=== PATIENT | female | born 1965 | race African-American/Black ===

== ENCOUNTER → 2017-10-01 | Outpatient (CLI) | payer OTHER ==
[~2017-10-01] MED LIST: MULT-65 PO; OXYC-360 PO; PRENTAB72 PO; TAMO10TA6 PO
[2017-10-01 15:32] LABS: HEMATOCRIT 37.4 % (35.0-46.0); MEAN CELL VOLUME 95.2 FL (80.0-100.0); MEAN CORPUSCULAR HGB CONC 33.6 % (32.0-36.0); PLATELET COUNT 275 TH/MM3 (150-450); RED BLOOD COUNT 3.93 MIL/MM3 (4.00-5.30); REVIEW FLAG FINAL; WHITE BLOOD COUNT 5.3 TH/MM3 (4.0-11.0)
[2017-10-01 15:39] LABS: BLOOD, URINE NEG (NEG); GLUCOSE,URINE NEG (NEG); KETONE, URINE NEG (NEG); MUCUS URINE FEW /lpf (OCC); NITRITE,URINE NEG (NEG); PH, URINE 6.5 (5.0-8.5); SQUAMOUS EPITHELIAL CELL URINE 8 /hpf (0-5); URINE COLOR YELLOW (YELLW/STRAW)
[2017-10-01 16:06] LABS: ANION GAP 8 MEQ/L (5-15); BICARBONATE 27.2 MEQ/L (21.0-32.0); BLOOD UREA NITROGEN 13 MG/DL (7-18); CHLORIDE 106 MEQ/L (98-107); GLOMERULAR FILTRATION RATE 86 ML/MIN (>89); GLUCOSE,FASTING 83 MG/DL (74-99); POTASSIUM 3.9 MEQ/L (3.5-5.1); SODIUM (NA) 141 MEQ/L (136-145)
--- NOTE | 2017-10-01 16:10 | RADRPT ---
EXAM DATE/TIME: 10/01/2017 15:33 [place] COMPARISON: No previous studies available for comparison. INDICATIONS : Evaluate for pneumonia, pneumothorax, or communicable disease. Pre op polyp removal and hysterectomy. MEDICAL HISTORY : None. SURGICAL HISTORY : None. ENCOUNTER: Initial ACUITY: 1 day PAIN SCORE: 0/10 LOCATION: Bilateral chest FINDINGS: PA and lateral views of the chest demonstrate the lungs to be symmetrically aerated without evidence of mass, infiltrate or effusion. The cardiomediastinal contours are unremarkable. Osseous structure s are intact. CONCLUSION: No acute disease. Gregg Huggins MD on October 01, 2017 at 16:08 Board Certified Radiologist. This report was verified electronically.
[2017-10-01 16:13] LABS: BHCG SCREEN QUALITATIVE LESS THAN 1 MIU/ML (0-5)
--- NOTE | 2017-10-02 15:51 | EKG ---
Date Performed: 10/01/2017 Time Performed: 14:40:26 PTAGE: 51 years EKG: Sinus rhythm WITH SINUS ARRHYTHMIA POSSIBLE LEFT ATRIAL ENLARGEMENT BORDERLINE ECG NO PREVIOUS TRACING DOCTOR: Da Ty Interpretating Date/Time 10/02/2017 15:49:47
== END ==
LOC: CPRE 14:27
PROVIDERS: ATTEND Obstetrics & Gynecology
DX: Z01.812 Encounter for preprocedural laboratory examination (principal); Z01.811 Encounter for preprocedural respiratory examination; Z01.810 Encounter for preprocedural cardiovascular examination
CPT/HCPCS: 36415; 71020; 80048; 81001; 84703; 85027; 93005

== ENCOUNTER → 2017-10-07 | Day surgery (SDC) | payer OTHER ==
[~2017-10-07] VITALS: Ht 162.6 cm; Wt 102.6 kg
[~2017-10-07] MED LIST changes: +*MEPERIDINE 25 MG INJ VIAL PERIprocedural Use ONLY ONE; +ACETAMINOPHEN 1000 MG/100 ML 100 ML IV ONE; +BUPIVACAINE/EPINEPHRINE 0.25% 50 ML VIAL ONE; +CHLORHEXIDINE GLUCONATE 2 % 1 PACK (2 CLOTHS) TOPICAL PRN; +DEXAMETHASONE SOD PHOS 4 MG/ML VIAL IV ONE; +DO NOT ADM ANY ANTICOAGULANT DRUGS PRN; +ESTROGENS CONJUGATED VAG CREA 15 APPL/30 GM TUBE ONE; +INSULIN HUMAN REGULAR 1,000 UNITS/10 ML VIAL SQ PRN; +KETOROLAC TROMETHAMINE 30 MG/ML (IVP) VIAL IM PRN; +KETOROLAC TROMETHAMINE 30 MG/ML (IVP) VIAL IV PUSH ONE; +LACTATED RINGER'S 1000 ML IV PRN; +LIDOCAINE HCL 1% PF 5 ML SYRINGE OTHER ONE; +METOPROLOL TARTRATE 25 MG TAB PO PRN; +MIDAZOLAM HCL 2 MG/2 ML VIAL IV ONE; +ONDANSETRON HCL 4 MG/2 ML VIAL IV ONE; +ONDANSETRON HCL 4 MG/2 ML VIAL IV PRN; -OXYC-360 PO; +POVIDONE IODINE 5% (ANTISEPSIS KIT) 4 APPLICATIONS EACH NARE PRN; -PRENTAB72 PO; +PROPOFOL 200 MG/20 ML AMP IV ONE; +ROCURONIUM INJ 50 MG/5 ML SYRINGE IV PUSH ONE; +SODIUM CHLORID 0.9% 500 ML IV PRN; +SUCCINYLCHOLINE CHLORIDE 100 MG/5 ML SYRINGE IV PUSH ONE; +ceFAZolin 2 GM PREMIX 50 ML IV ONE; +oxyCODONE/ACETAMINOPHEN 5 MG/325 MG TAB PO PRN
--- NOTE | 2017-10-07 09:53 | MP ---
cc: Fax to JOHNYN ALVAREZ DATE OF SURGERY 10/07/2017 PREOPERATIVE DIAGNOSIS Thickened endometrium, postmenopausal bleeding, history of breast cancer on tamoxifen. POSTOPERATIVE DIAGNOSIS Thickened endometrium, postmenopausal bleeding, history of breast cancer on tamoxifen. PROCEDURE Examination under anesthesia, hysteroscopy, myomectomy with MyoSure. SURGEON Dr. Alvarez ANESTHESIA General FLUIDS 400 cc crystalloid ESTIMATED BLOOD LOSS 10 cc URINE OUTPUT 20 cc on straight cath prior to the procedure. FINDINGS A large uterine polyp was noted and a submucosal fibroid was noted at hysteroscopy. PROCEDURE The patient was taken to the operating room where general anesthesia was found to be adequate. She was then prepped and draped in the normal sterile fashion in the dorsal lithotomy position. The urinary bladder was emptied of urine using sterile technique. A weighted speculum was placed in the vagina. A single-toothed tenaculum applied to the anterior lip of the cervix. The uterus sounded to 10 cm. The cervix was gently dilated with Andrew dilators sizes 9-18. Hysteroscopy was then performed noting a submucosal fibroid and a large uterine polyp. These were then excised with the MyoSure device and sent to pathology. Hemostasis was assured. The MyoSure was then removed. The hysteroscope was removed. The tenaculum and weighted speculum were removed. Again, hemostasis was noted. The fluid deficit was 1655 cc distension media was normal saline. Pathology was uterine polyp and submucosal fibroid. The patient was awakened from anesthesia and transferred to the recovery room in stable condition. MD MARTINA Britt/KIRAN /9:35 AM /9:44 AM
[2017-10-07 10:50] VITALS: BP 133/74; PULSE 76; RESP 18; TEMP 98.7; O2SAT 100
== END | disposition home or self-care (01) ==
LOC: HSDC 06:36
PROVIDERS: ATTEND Obstetrics & Gynecology
DX: N95.0 Postmenopausal bleeding (principal); D25.0 Submucous leiomyoma of uterus; N84.0 Polyp of corpus uteri; R93.8 Abnormal findings on diagnostic imaging of other specified body structures
CPT/HCPCS: 00952; 58558; 86850; 86900; 86901; 88305; J0131; J0330; J0690; J1100; J1885; J2175; J2250; J2405; J3010; J7120